=== PATIENT | female | born 1950 | race Two or more races ===

== ENCOUNTER 2024-06-10 10:31 | Emergency (ER) | payer OTHER ==
[~2024-06-10] VITALS: Ht 152.4 cm; Wt 62.6 kg
[~2024-06-10 10:31] MED LIST: ACID REDUCER20 M1; ATENOLOL25 MG PO; BACLOFEN20 MG PO; CARAFATE1 GM PO; CELEBREX200MG PO; CIPROFLOXACIN750 MG PO; CLONAZEPAM1 MG PO; DARIFENACIN ER7.5 MG PO; DICY20TA PO; DOCUSATE SODIU100 MG PO; ESCITALOPRA5 MG/5 ML; EXELON1 PATCH .2 TD; GABAPENTIN800 MG PO; KLONOPIN PO; LEXAPRO20 MG PO; LIPITOR40 MG PO; LYRICA150 MG PO; NAMENDA10 MG PO; PEPCID AC20 MG; PEPCID20 MG PO; PERCOCET 5/3251 TAB PO; RESTORIL15 M1 PO; RESTORIL30 M1 PO; SARELLA PO
[2024-06-10] MEDS ORDERED: FAMOTIDINE/PF 20 MG in 0.9 % SODIUM CHLORIDE 8 ML IV PUSH STA (11:13)
[2024-06-10] MEDS ORDERED: 0.9 % SODIUM CHLORIDE 1,000 ML IV SCH (11:15)
[2024-06-10] MEDS ORDERED: ONDANSETRON HCL 2 MG/ML VIAL IV ONE (11:15)
[2024-06-10] MEDS ORDERED: HYOSCYAMINE SULFATE 0.125 MG TAB.SUBL SL ONE (11:15)
[2024-06-10 12:21] LABS: HEMATOCRIT 40.7 % (36.0-45.00); HEMOGLOBIN 13.8 g/dL (12.0-15.00); MEAN CELL VOLUME 95.6 fL (80.00-100.00); MEAN CORPUSCULAR HEMOGLOBIN 32.4 pg (27.00-32.0); MEAN CORPUSCULAR HGB CONC 33.9 g/dl (32.0-36.0); PLATELET COUNT 175 K/uL (150-450); RED BLOOD COUNT 4.26 M/uL (4.00-6.00); RED CELL DISTRIBUTION WIDTH 13.7 % (11.5-14.5)
[2024-06-10 12:45] LABS: ALBUMIN 3.6 gm/dL (3.4-5.0); BILIRUBIN TOTAL 0.76 mg/dL (0.3-1.2); CALCIUM 9.3 mg/dL (8.5-10.1); CREATININE SERUM 0.93 mg/dL (0.55-1.02); GFR 59.26; GLOBULINA 3.5 G/DL (2.4-3.5); POTASSIUM 4.62 mEq/L (3.5-5.1); TOTAL PROTEIN 7.1 gm/dL (6.4-8.2)
[2024-06-10] MEDS ORDERED: METRONIDAZOLE500 MG PO (18:53)
[2024-06-10] MEDS ORDERED: PEPCID AC20 MG PO (18:53)
== END 2024-06-10 19:04 | disposition home or self-care (01) ==
LOC: ER 10:33
PROVIDERS: General Practice
DX: K57.90 Diverticulosis of intestine, part unspecified, without perforation or abscess without bleeding (principal); R10.9 Unspecified abdominal pain; I10 Essential (primary) hypertension; Z88.0 Allergy status to penicillin; Z88.6 Allergy status to analgesic agent; Z91.013 Allergy to seafood
CPT/HCPCS: 36415; 74177; 96365; 96366; 99284; J2405; J3490; J7030; Q9965